=== PATIENT | female | born 1950 | race Caucasian/White ===

== ENCOUNTER 2017-01-02 08:05 | Outpatient (CLI) | payer OTHER ==
--- NOTE | 2017-01-02 10:53 | DIAGNOSTIC IMAGING REPORT ---
PROCEDURE: XR CHEST 2 VIEW INDICATION: COPD TECHNIQUE: PA and lateral views. COMPARISON: Chest 10/22/2014 FINDINGS: There is a lingular infiltrate. Right lung is clear. Heart and mediastinum are normal. Thorax is normal. IMPRESSION: 1. Lingular infiltrate.
== END 2017-01-02 23:00 ==
LOC: XR SRH 08:05
DX: R91.8 Other nonspecific abnormal finding of lung field (principal)

== ENCOUNTER 2017-02-16 15:24 | Emergency (ER) | payer OTHER ==
--- NOTE | 2017-02-16 16:54 | DIAGNOSTIC IMAGING REPORT ---
PROCEDURE: XR CHEST 1 VIEW INDICATION: CHEST PAIN TECHNIQUE: Single view chest. 1604 hours COMPARISON: 01/02/2017 FINDINGS: Lordotic patient position. Stable cardiomediastinal contour. No new central vascular congestion. Poor visualization of the retrocardiac and lingular regions. Minor stranding in the medial right lung base. No pneumothorax. Intact osseous structures. IMPRESSION: 1. Lordotic patient position and suboptimal evaluation of the lower lobes. 2. Strand-like density in the medial right lower lung, probably atelectasis. Correlate clinically.
--- NOTE | 2017-02-16 18:02 | ED NURSING NOTES ---
Clinical Report - Nurses [facility] [address] [place] [address] 02/16/2017 15:26 [id number] Triage time 15:29. Acuity: LEVEL 2. Chief Complaint: CHEST PAIN and LEFT ARM PAIN (left arm and hand tingling). Alert. No acute distress. SEPSIS SCREEN: Sepsis Screen. Negative (no infection suspected/documented). CECILE COMA SCORE: Cecile Coma Scale: 15- eyes open spontaneously (4); best verbal response- oriented x 4 (5); best motor response- obeys commands (6). --15:33 Riana Jiménez R.N. 15:29 02/16/17. BP: 148/57. HR: 70. RR: 20. O2 saturation: 98%. Temp: 98.2 F. Pain level now 8/10. --15:33 Riana Jiménez R.N. Weight: 146.5 kg stated. Height/Length: 63 inches Per Patient. BMI: 57.2. --15:29 Riana Jiménez R.N. Medications Lisinopril Oral 30mg , daily. --15:37 Riana Jiménez R.N. Albuterol Sulfate Inhalation. --15:38 Riana Jiménez R.N. MetFORMIN HCl Oral, 2x a day. --15:38 Riana Jiménez R.N. ASA Oral 325mg daily. --15:38 Riana Jiménez R.N. Vicodin Oral, as needed (pain). --15:38 Riana Jiménez R.N. Atorvastatin Calcium Oral, daily. --15:39 Riana Jiménez R.N. Levothyroxine Sodium Oral, daily. --15:39 Riana Jiménez R.N. Allergies No Known Drug Allergy. --15:33 Riana Jiménez R.N. History Arrived by private vehicle. Historian: patient. Accompanied by spouse. Primary physician (Dr. Danielson: [facility]). Onset. (2 hours ago). 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 PAST MEDICAL HX: Immunizations: status is unknown. SOCIAL HX: Heavy tobacco smoker (cigarette)- 1 pack per day. No alcohol use or drug use. ABUSE ASSESSMENT: Abuse assessment: The patient was asked "Do you feel safe in your home?" and "Has anyone hurt you or threatened to hurt you?". No report of abuse. SELF HARM ASSESSMENT: A self harm assessment was performed. The patient answered "no" to the question "Do you have thoughts of harming or killing yourself?" and "Have you recently had thoughts about harming or killing others?". NUTRITIONAL RISK ASSESSMENT: The nutritional risk assessment revealed no deficiencies. FUNCTIONAL ASSESSMENT: Functional assessment: no impairments noted. LEARNING NEEDS ASSESSMENT: The learning needs assessment revealed no barriers. --15:33 Riana Jiménez R.N. The patient has had vomiting. ( and "massive, massive headache." GONCALVES started x3 weeks ago.). --15:34 Riana Jiménez R.N. PROBLEMS: Incontinence. COPD - Chronic Obstructive Pulmonary Disease. Hyperlipidemia. Herniated Disk. Diabetes Mellitus Type 2. Hypertension. --15:39 Riana Jiménez R.N. Hypothyroidism. --15:39 Riana Jiménez R.N. Interventions ID band on patient. Transported via wheelchair. --15:33 Riana Jiménez R.N. PHYSICAL ASSESSMENT To room via wheelchair. GENERAL / NEURO / PSYCH: Alert. Oriented X 4. Appears in no acute distress. HEENT: Mucous membranes are pink. RESPIRATORY: Respirations not labored. CVS: Pulses within normal limits. Capillary refill less than 2 seconds. GI / : Abdomen soft and nontender. EXTREMITIES: Bilateral 2+ pitting edema of the lower extremities involving both ankles and both lower legs. SKIN: Skin is warm and dry. --15:32 Riana Jiménez R.N. NURSING PROGRESS NOTES manager monitoring, pulse oximeter and NIBP monitor placed on patient; environmental monitoring specialist- Lead II; monitor alarms on. Patient gowned. Head of bed elevated. Two patient identifiers checked. Call light placed in reach. Side rails up x 2. Bed placed in lowest position. Brakes of bed on. Patient ready for evaluation- chart flagged. --15:32 Riana Jiménez R.N. 15:32 02/16/2017 Site #1 started via IV in the left hand with an 20g angiocath, with aseptic technique and good blood return; one attempt. Blood drawn: rainbow set. Labeled in the presence of the patient and sent to the lab. Saline lock flushed with 10 mL saline (accessed by MAYDA Hart). --15:32 Riana Jiménez R.N. EKG time: (15:32). EKG was ordered, performed by a nurse and shown to the ED physician. --15:35 Riana Jiménez R.N. 15:47 02/16/2017 Aspirin PO 162 mg given. Allergies verified and confirmed 5 rights. --15:47 Jennifer Bartholomew R.N. 17:15. --17:23 Riana Jiménez R.N. 17:22 02/16/17. Pain level now 4/10. --17:23 Riana Jiménez R.N. Assisted patient to bedside commode; tolerated well. --17:23 Riana Jiménez R.N. Patient ID band checked for patient name, birthdate and medical record number: patient confirmed. Instructions provided to collect clean catch urine and patient verbalized understanding. Clean catch urine collected with return of yellow-colored clear urine; sample sent to lab for urinalysis. Specimen labeled in the presence of the patient. --17:23 Riana Jiménez R.N. 17:28 02/16/17. BP: 117/70. HR: 102. RR: 16. O2 saturation: 97%. Pain level now 4/10. --17:29 Riana Jiménez R.N. 19:00. Care transferred and report given (to MAYDA Guerrero). --19:12 Riana Jiménez R.N. DISPOSITION / DISCHARGE 19:15 02/16/2017 Site #1 removed upon discharge. Catheter intact. Pressure dressing applied. --19:15 Audrey Pickett Departure time: 19:16. Condition at departure: improved. No learning barriers present. Discharge instructions provided and reviewed with the patient. Reviewed medication(s) side effects, precautions, dosing and course information. Prescription(s) given to the patient. Patient verbalized understanding. Written instructions provided in Romanian. No warning instructions, treatment instructions, referrals given to the patient, diet instructions or activity restrictions. No note given, follow up contact number given or stop smoking instructions. The patient was discharged by the physician. She was discharged home and accompanied by spouse. She left the Emergency Department in a wheelchair and via private vehicle. Spouse driving. FALL RISK ASSESSMENT: Fall risk assessment completed. No fall risk identified. --19:16 Audrey Pickett 19:14 02/16/17. BP: 142/78. HR: 71. RR: 18. O2 saturation: 97%. Temp: deferred. Pain level now: 0/10. --19:16 Audrey Pickett Locked/Released at 02/16/2017 19:16 by Audrey Pickett
--- NOTE | 2017-02-16 18:02 | ED CLINICAL REPORT ---
Clinical Report - Physicians/Mid Levels [facility] [address] [place] [address] 02/16/2017 15:26 Patient: BECKY NUNES Time Seen: 15:28; initial patient contact. Arrived- By private vehicle. Historian- patient. HISTORY OF PRESENT ILLNESS Chief Complaint: CHEST PAIN. At its maximum, severity described as moderate. When seen in the E.D., severity described as moderate. Modifying factors- worsened by cough and deep breaths. Not relieved by anything. This started just prior to arrival. Onset during rest. It is described as "pain" and it is described as located in the central chest area. No radiation. No nausea, vomiting, difficulty breathing or diaphoresis. Similar symptoms previously: Many times. Recent medical care: Not recently seen/assessed. REVIEW OF SYSTEMS No fever, chills, calf pain, fainting episodes or abdominal pain. She has had a cough. She has had moderate pedal edema involving the right and left lower extremity (Chronic and at baseline). It has been similar to previous symptoms. All systems otherwise negative, except as recorded above. PAST HISTORY Incontinence. COPD - Chronic Obstructive Pulmonary Disease. Hyperlipidemia. Herniated Disk. Diabetes Mellitus Type 2. Hypertension. - Hypothyroidism. SOCIAL HISTORY Current every day smoker. No alcohol use or drug use. ADDITIONAL NOTES The nursing notes have been reviewed. PHYSICAL EXAM Vital Signs: 02/16/2017 15:29 BP: 148/57. HR: 70. RR: 20. O2 saturation: 98%. Temp: 98.2 F. Have been reviewed. Hypertensive. Heart rate normal. Respiratory rate normal. Temperature normal. Oxygen saturation normal. Appearance: Alert. Oriented X3. No acute distress. Eyes: Eyes normal inspection. ENT: Pharynx normal. Neck: Normal inspection. No JVD. CVS: Normal heart rate and rhythm. Heart sounds normal. Respiratory: No respiratory distress. Chest pain reproducible with palpation of the costochondral junction and with deep breathing. Moderate left mid- costochondral tenderness. The tenderness is well-localized and reproduces the patient's subjective complaint. Breath sounds normal. Abdomen: Soft and nontender. Bowel sounds normal. No organomegaly. No mass. Skin: Skin warm and dry. Normal skin color. Extremities: Bilateral 2+ pitting edema of the lower extremities involving both lower legs. No calf tenderness. Neuro: Oriented X 3. LABS, X-RAYS, AND EKG EKG: EKG time: (1536). No acute process. No acute ischemia. Normal sinus rhythm. Rate: 64. Normal P waves. Normal KATELYN. Normal QRS complex. Normal axis. Normal ST and T waves, QT and QTc. Prior EKG unavailable. The study has been interpreted contemporaneously by me. The study has been independently viewed by me. The EKG appears to be a good tracing. Interpretation time: 153. Chest X-ray: No acute disease. No infiltrate. Views: AP. Technique: poor inspiration. The X-rays were independently viewed by me and interpreted contemporaneously by me. Interpretation time: 18:01. Laboratory Tests: CBC w Diff: (CHAMP: 02/16/2017 15:30) ( MsgRcvd 02/16/2017 15:49) Final results Test Result Flag Units (Reference) WHITE BLOOD COUNT 11.4 K/uL (4.5-11.5) RED BLOOD COUNT 6.03 *H M/uL (4.00-5.20) HEMOGLOBIN 16.9 H gm/dL (12.0-16.0) HEMATOCRIT 51.8 H % (36.0-46.0) MEAN CELL VOLUME 86 fL (80-100) MEAN CORPUSCULAR HGB 28 pg (26-34) MEAN CORPUSCULAR HGB CONC 33 g/dL (31-37) RED CELL DISTRIBUTION WIDTH 14.6 % (11.6-14.8) PLATELET COUNT 261 K/uL (150-400) NEUTROPHIL % 71.5 % (50-75) LYMPH % 19.4 L % (25-40) MONO % 7.3 % (3-14) EOSINOPHIL % 1.7 % (0-4) BASOPHIL % 0.1 % (0-2) . PROGRESS AND PROCEDURES Disposition: Discharged home in good condition. CLINICAL IMPRESSION Costochondritis .12 lead EKG performed. INSTRUCTIONS Your Current Medications: CONTINUE TAKING THE FOLLOWING MEDICATIONS: Albuterol Sulfate Inhalation. ASA Oral : 325mg daily. Atorvastatin Calcium Oral : daily. Levothyroxine Sodium Oral : daily. Lisinopril Oral : 30mg daily. MetFORMIN HCl Oral : 2x a day. Vicodin Oral : prn, pain. Prescription Medications: Diclofenac 50 mg tablets: take 1 tablet orally every 6 hours as needed for pain or stiffness. Dispense twenty (20). No refill. Paxil 10 mg: take 1 orally every day. Dispense thirty (30). No refill. Substitution is permissible. Follow-up: Follow up with your doctor in about two days. Call for an appointment. Blood pressure screening was not performed during this visit because the patient has an active diagnosis of hypertension. (Electronically signed by Candelario Morrissey Dr. 02/17/2017 9:15)
--- NOTE | 2017-02-16 18:02 | ED ORDER SUMMARY ---
..... Patient: BECKY NUNES OrderSheet [facility] VisitID: [id number] [address] [place] [address] 66y, F Registration Date/Time: 02/16/2017 ORDER SHEET Weight: 146.5 kg (stated) Allergies: No Known Drug Allergy GENERAL ORDERS: Chest 1V Urgent (15:32 02/16/2017 Katty Monroy) (Ack 15:36 Cheri) (16:52 MWinterer R.N.) UA-Culture if indicated Urgent (15:33 02/16/2017 Katty Monroy) (Ack 15:36 Cheri) (17:29 SReitz R.N.) Cardiac Panel Stat (15:02/16/2017 Katty Monroy) (Ack 15:36 Cheri) (15:45 MWinterer R.N.) BNP Urgent (15:02/16/2017 Katty Monroy) (Ack 15:36 Cheri) (15:45 MWinterer R.N.) D-Dimer Urgent (15:33 02/16/2017 Katty Monroy) (Ack 15:36 Cheri) (15:45 MWinterer R.N.) Urine Drug Screen Urgent (15:02/16/2017 Katty Monroy) (Ack 15:36 Cheri) (17:29 SReitz R.N.) MEDICATION ORDERS: Aspirin PO 162 mg (Do not crush or chew, NOW) (15:02/16/2017 Katty Monroy) (Ack 15:45 MWinterer R.N.) (15:47 MWinterer R.N.) IV FLUIDS: IV Saline Lock (15:02/16/2017 Katty Monroy) (15:45 MWinterer R.N.) ORDER SHEET NOTES: [Electronically signed by Elana Wu R.N. (19:16 02/16/2017)] [Electronically signed by Candelario Morrissey Dr. (09:15 02/17/2017)] [Electronically locked/signed by Elana Wu R.N. (19:16 02/16/2017)]
--- NOTE | 2017-02-16 18:02 | ED NURSING NOTES ---
Clinical Report - Nurses [facility] [address] [place] [address] 02/16/2017 15:26 [id number] Triage time 15:29. Acuity: LEVEL 2. Chief Complaint: CHEST PAIN and LEFT ARM PAIN (left arm and hand tingling). Alert. No acute distress. SEPSIS SCREEN: Sepsis Screen. Negative (no infection suspected/documented). CECILE COMA SCORE: Cecile Coma Scale: 15- eyes open spontaneously (4); best verbal response- oriented x 4 (5); best motor response- obeys commands (6). --15:33 Riana Jiménez R.N. 15:29 02/16/17. BP: 148/57. HR: 70. RR: 20. O2 saturation: 98%. Temp: 98.2 F. Pain level now 8/10. --15:33 Riana Jiménez R.N. Weight: 146.5 kg stated. Height/Length: 63 inches Per Patient. BMI: 57.2. --15:29 Riana Jiménez R.N. Medications Lisinopril Oral 30mg , daily. --15:37 Riana Jiménez R.N. Albuterol Sulfate Inhalation. --15:38 Riaan Jiménez R.N. MetFORMIN HCl Oral, 2x a day. --15:38 Riana Jiménez R.N. ASA Oral 325mg daily. --15:38 Riana Jiménez R.N. Vicodin Oral, as needed (pain). --15:38 Riana Jiménez R.N. Atorvastatin Calcium Oral, daily. --15:39 Riana Jiménez R.N. Levothyroxine Sodium Oral, daily. --15:39 Riana Jiménez R.N. Allergies No Known Drug Allergy. --15:33 Riana Jiménez R.N. History Arrived by private vehicle. Historian: patient. Accompanied by spouse. Primary physician (Dr. Danielson: [facility]). Onset. (2 hours ago). 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 PAST MEDICAL HX: Immunizations: status is unknown. SOCIAL HX: Heavy tobacco smoker (cigarette)- 1 pack per day. No alcohol use or drug use. ABUSE ASSESSMENT: Abuse assessment: The patient was asked "Do you feel safe in your home?" and "Has anyone hurt you or threatened to hurt you?". No report of abuse. SELF HARM ASSESSMENT: A self harm assessment was performed. The patient answered "no" to the question "Do you have thoughts of harming or killing yourself?" and "Have you recently had thoughts about harming or killing others?". NUTRITIONAL RISK ASSESSMENT: The nutritional risk assessment revealed no deficiencies. FUNCTIONAL ASSESSMENT: Functional assessment: no impairments noted. LEARNING NEEDS ASSESSMENT: The learning needs assessment revealed no barriers. --15:33 Riana Jiménez R.N. The patient has had vomiting. ( and "massive, massive headache." GONCALVES started x3 weeks ago.). --15:34 Riana Jiménez R.N. PROBLEMS: Incontinence. COPD - Chronic Obstructive Pulmonary Disease. Hyperlipidemia. Herniated Disk. Diabetes Mellitus Type 2. Hypertension. --15:39 Riana Jiménez R.N. Hypothyroidism. --15:39 Riana Jiménez R.N. Interventions ID band on patient. Transported via wheelchair. --15:33 Riana Jiménez R.N. PHYSICAL ASSESSMENT To room via wheelchair. GENERAL / NEURO / PSYCH: Alert. Oriented X 4. Appears in no acute distress. HEENT: Mucous membranes are pink. RESPIRATORY: Respirations not labored. CVS: Pulses within normal limits. Capillary refill less than 2 seconds. GI / : Abdomen soft and nontender. EXTREMITIES: Bilateral 2+ pitting edema of the lower extremities involving both ankles and both lower legs. SKIN: Skin is warm and dry. --15:32 Riana Jiménez R.N. NURSING PROGRESS NOTES monitor tech, pulse oximeter and NIBP monitor placed on patient; satellite project site monitor- Lead II; monitor alarms on. Patient gowned. Head of bed elevated. Two patient identifiers checked. Call light placed in reach. Side rails up x 2. Bed placed in lowest position. Brakes of bed on. Patient ready for evaluation- chart flagged. --15:32 Riana Jiménez R.N. 15:32 02/16/2017 Site #1 started via IV in the left hand with an 20g angiocath, with aseptic technique and good blood return; one attempt. Blood drawn: rainbow set. Labeled in the presence of the patient and sent to the lab. Saline lock flushed with 10 mL saline (accessed by MAYDA Hart). --15:32 Riana Jiménez R.N. EKG time: (15:32). EKG was ordered, performed by a nurse and shown to the ED physician. --15:35 Riana Jiménez R.N. 15:47 02/16/2017 Aspirin PO 162 mg given. Allergies verified and confirmed 5 rights. --15:47 Jennifer Bartholomew R.N. 17:15. --17:23 Riana Jiménez R.N. 17:22 02/16/17. Pain level now 4/10. --17:23 Riana Jiménez R.N. Assisted patient to bedside commode; tolerated well. --17:23 Riana Jiménez R.N. Patient ID band checked for patient name, birthdate and medical record number: patient confirmed. Instructions provided to collect clean catch urine and patient verbalized understanding. Clean catch urine collected with return of yellow-colored clear urine; sample sent to lab for urinalysis. Specimen labeled in the presence of the patient. --17:23 Riana Jiménez R.N. 17:28 02/16/17. BP: 117/70. HR: 102. RR: 16. O2 saturation: 97%. Pain level now 4/10. --17:29 Riana Jiménez R.N. 19:00. Care transferred and report given (to MAYDA Guerrero). --19:12 Riana Jiménez R.N. DISPOSITION / DISCHARGE 19:15 02/16/2017 Site #1 removed upon discharge. Catheter intact. Pressure dressing applied. --19:15 Audrey Pickett Departure time: 19:16. Condition at departure: improved. No learning barriers present. Discharge instructions provided and reviewed with the patient. Reviewed medication(s) side effects, precautions, dosing and course information. Prescription(s) given to the patient. Patient verbalized understanding. Written instructions provided in Turkmen. No warning instructions, treatment instructions, referrals given to the patient, diet instructions or activity restrictions. No note given, follow up contact number given or stop smoking instructions. The patient was discharged by the physician. She was discharged home and accompanied by spouse. She left the Emergency Department in a wheelchair and via private vehicle. Spouse driving. FALL RISK ASSESSMENT: Fall risk assessment completed. No fall risk identified. --19:16 Audrey Pickett 19:14 02/16/17. BP: 142/78. HR: 71. RR: 18. O2 saturation: 97%. Temp: deferred. Pain level now: 0/10. --19:16 Audrey Pickett Locked/Released at 02/16/2017 19:16 by Audrey Pickett
--- NOTE | 2017-02-16 18:02 | ED ORDER SUMMARY ---
..... Patient: BECKY NUNES OrderSheet [facility] VisitID: [id number] [address] [place] [address] 66y, F Registration Date/Time: 02/16/2017 ORDER SHEET Weight: 146.5 kg (stated) Allergies: No Known Drug Allergy GENERAL ORDERS: Chest 1V Urgent (15:32 02/16/2017 Katty Monroy) (Ack 15:36 Cheri) (16:52 MWinterer R.N.) UA-Culture if indicated Urgent (15:33 02/16/2017 Katty Monroy) (Ack 15:36 Cheri) (17:29 SReitz R.N.) Cardiac Panel Stat (15:02/16/2017 Katty Monroy) (Ack 15:36 Cheri) (15:45 MWinterer R.N.) BNP Urgent (15:02/16/2017 Katty Monroy) (Ack 15:36 Cheri) (15:45 MWinterer R.N.) D-Dimer Urgent (15:33 02/16/2017 Katty Monroy) (Ack 15:36 Cheri) (15:45 MWinterer R.N.) Urine Drug Screen Urgent (15:02/16/2017 Katty Monroy) (Ack 15:36 Cheri) (17:29 SReitz R.N.) MEDICATION ORDERS: Aspirin PO 162 mg (Do not crush or chew, NOW) (15:02/16/2017 Katty Monroy) (Ack 15:45 MWinterer R.N.) (15:47 MWinterer R.N.) IV FLUIDS: IV Saline Lock (15:02/16/2017 Katty Monroy) (15:45 MWinterer R.N.) ORDER SHEET NOTES: [Electronically signed by Elana Wu R.N. (19:16 02/16/2017)] [Electronically signed by Candelario Morrissey Dr. (09:15 02/17/2017)] [Electronically locked/signed by Elana Wu R.N. (19:16 02/16/2017)]
--- NOTE | 2017-02-17 09:15 | ED MAR SUMMARY ---
..... Medication Administration Record [facility] [address] [place] [address] Patient: BECKY NUNES Visit ID: [id number] 66y, F Weight: 146.5 kg Height/Length: 63 in BMI: 57.2 ALLERGIES: No Known Drug Allergy Given 15:47 02/16/2017 Jennifer Bartholomew R.N. Medication Administered: ASPIRIN [PO], Dose: 162 mg PO. Medication Ordered: Aspirin PO 162 mg (Do not crush or chew, NOW).
--- NOTE | 2017-02-17 09:15 | ED MED RECONCILIATION SUMMARY ---
Patient: BECKY NUNES Medication Reconciliation Report [facility] VisitID: [id number] [address] [place] [address] 66y, F Registration Date/Time: 02/16/2017 Weight: 146.5 kg Height/Length: 63 in. BMI: 57.2 ALLERGIES: No Known Drug Allergy The patient's Home Medications are listed below: CONTINUE TAKING THE FOLLOWING MEDICATIONS: Albuterol Sulfate Inhalation ASA Oral 325mg daily Atorvastatin Calcium Oral, daily Levothyroxine Sodium Oral, daily Lisinopril Oral 30mg , daily MetFORMIN HCl Oral, 2x a day Vicodin Oral, pain The source(s) of the original Home Medication information: Not obtained. The following Medications were given to the patient in the Emergency Department: Aspirin [PO] PO 162 mg, administered: 02/16/2017 3:47:00 PM The following Medications were prescribed to the patient: Diclofenac 50 mg tablets: take 1 tablet orally every 6 hours as needed for pain or stiffness. Dispense twenty (20). No refill. -- Candelario Morrissey Dr. Paxil 10 mg: take 1 orally every day. Dispense thirty (30). No refill. Substitution is permissible. -- Candelario Morrissey Dr.
--- NOTE | 2017-02-17 09:15 | ED DISCHARGE INSTRUCTIONS ---
Patient: BECKY NUNES General Instructions [facility] VisitID: [id number] [address] [place] [address] 66y, F Registration Date/Time: 02/16/2017 Costochondritis .12 lead EKG performed. INSTRUCTIONS Your Current Medications: CONTINUE TAKING THE FOLLOWING MEDICATIONS: Albuterol Sulfate Inhalation. ASA Oral : 325mg daily. Atorvastatin Calcium Oral : daily. Levothyroxine Sodium Oral : daily. Lisinopril Oral : 30mg daily. MetFORMIN HCl Oral : 2x a day. Vicodin Oral : prn, pain. Prescription Medications: Diclofenac 50 mg tablets: take 1 tablet orally every 6 hours as needed for pain or stiffness. Dispense twenty (20). No refill. Paxil 10 mg: take 1 orally every day. Dispense thirty (30). No refill. Substitution is permissible. Follow-up: Follow up with your doctor in about two days. Call for an appointment. Blood pressure screening was not performed during this visit because the patient has an active diagnosis of hypertension. ADDITIONAL INFORMATION Chest Wall Pain: Costochondritis The chest pain that you have had today is caused by Costochondritis. This condition is due to an inflammation of the cartilage joining the ribs to the breastbone. It is not caused by heart or lung problems. Although the exact cause for costochondritis is not known, it often occurs during times of emotional stress. It can be painful, but it is not dangerous. It usually disappears within one to two weeks, but may recur. Rarely, a more serious condition may cause symptoms similar to costochondritis; therefore, watch for the warning signs listed below. Home Care: If you feel that emotional stress is a cause of your condition, try to identify sources of that stress. It may not be obvious! Learn ways to deal with the stress in your life such as regular exercise, muscle relaxation, meditation, or simply taking time out for yourself. For more information about this, consult your doctor or go to a local bookstore and review books and tapes available on the subject of stress reduction. You may use acetaminophen (Tylenol) or ibuprofen (Motrin, Advil) to control pain, unless another pain medicine was prescribed. [ NOTE: If you have liver disease or ever had a stomach ulcer, talk with your doctor before using these medicines.] The use of heat (hot wet compress or heating pad) with or without local analgesic creams (Deep Heat Rub, Jamel Teixeira) will be helpful to reduce pain. Follow Up with your doctor as directed or sooner if you do not start to improve within the next two days. Get Prompt Medical Attention if any of the following occur: A change in the type of pain: if it feels different, becomes more severe, lasts longer, or spreads into your shoulder, arm, neck, jaw or back Shortness of breath or increased pain with breathing Weakness, dizziness, or fainting Cough with dark colored sputum (phlegm) or blood Abdominal pain Dark red or black stools Fever of 100.4F (38C) or higher, or as directed by your healthcare provider You have been given the following additional information: Chest Wall Pain, Costochondritis (Electronically signed by Candelario Morrissey Dr. 02/17/2017 9:15)
--- NOTE | 2017-02-17 09:15 | ED MAR SUMMARY ---
..... Medication Administration Record [facility] [address] [place] [address] Patient: BECKY NUNES Visit ID: [id number] 66y, F Weight: 146.5 kg Height/Length: 63 in BMI: 57.2 ALLERGIES: No Known Drug Allergy Given 15:47 02/16/2017 Jennifer Bartholomew R.N. Medication Administered: ASPIRIN [PO], Dose: 162 mg PO. Medication Ordered: Aspirin PO 162 mg (Do not crush or chew, NOW).
--- NOTE | 2017-02-17 09:15 | ED MED RECONCILIATION SUMMARY ---
Patient: BECKY NUNES Medication Reconciliation Report [facility] VisitID: [id number] [address] [place] [address] 66y, F Registration Date/Time: 02/16/2017 Weight: 146.5 kg Height/Length: 63 in. BMI: 57.2 ALLERGIES: No Known Drug Allergy The patient's Home Medications are listed below: CONTINUE TAKING THE FOLLOWING MEDICATIONS: Albuterol Sulfate Inhalation ASA Oral 325mg daily Atorvastatin Calcium Oral, daily Levothyroxine Sodium Oral, daily Lisinopril Oral 30mg , daily MetFORMIN HCl Oral, 2x a day Vicodin Oral, pain The source(s) of the original Home Medication information: Not obtained. The following Medications were given to the patient in the Emergency Department: Aspirin [PO] PO 162 mg, administered: 02/16/2017 3:47:00 PM The following Medications were prescribed to the patient: Diclofenac 50 mg tablets: take 1 tablet orally every 6 hours as needed for pain or stiffness. Dispense twenty (20). No refill. -- Candelario Morrissey Dr. Paxil 10 mg: take 1 orally every day. Dispense thirty (30). No refill. Substitution is permissible. -- Candelario Morrissey Dr.
== END 2017-02-16 19:17 | disposition home or self-care (01) ==
LOC: ED SRH 15:24
DX: M94.0 Chondrocostal junction syndrome [Tietze] (principal); E11.9 Type 2 diabetes mellitus without complications; I10 Essential (primary) hypertension; J44.9 Chronic obstructive pulmonary disease, unspecified; F17.210 Nicotine dependence, cigarettes, uncomplicated; Z79.899 Other long term (current) drug therapy; Z79.84 Long term (current) use of oral hypoglycemic drugs
CPT/HCPCS: 90004; 90100; 90469; 90616; 91320; 91556; 92610; 92720; 92760; 92761; 92762; 92763; 92764; 92765; 92766; 92767; 95059